=== PATIENT | male | born 1965 | race Caucasian/White ===

== ENCOUNTER 2016-09-11 17:16 | Emergency (ER) | payer BC ==
[~2016-09-11] VITALS: Ht 180.3 cm; Wt 122.9 kg
[~2016-09-11 17:16] MED LIST: ADVAIR 250/501 DISK IH; FLEXERIL10 MG PO; IBUPROFEN800 MG PO; KEFLEX500 MG PO; MOTRIN800 MG PO; NAPROSYN500 MG PO; PRILOSEC OTC20 MG PO; PRILOSEC10 MG PO; PYRIDIUM100 MG PO; ULTRAM50 MG PO; VENTOLIN HFA18 GM IH
[2016-09-11 18:01] LABS: HEMATOCRIT 44.2 % (38.0-50.0); MCH 31.4 PG (29.0-34.0); MCHC 34.8 G/DL (30.0-36.0); MEAN PLAT.VOLUME 11.9 uM^3 (9.0-12.4); PLATELET COUNT 160 K/uL (156-360); RBC DIS.WIDTH-CV 12.9 % (11.8-14.6); RBC DIS.WIDTH-SD 41.8 % (39-53); RED BLOOD COUNT 4.91 M/uL (4.00-5.50); WHITE BLOOD COUNT 7.2 K/uL (4.1-10.2)
[2016-09-11 18:12] LABS: CHLORIDE 101 mEq/L (99-109); POTASSIUM 4.4 mEq/L (3.7-5.4); SODIUM 135 mEq/L (136-147)
[2016-09-11 18:14] LABS: GLUCOSE 132 mg/dL (70-99)
[2016-09-11 18:15] LABS: ANION GAP 10 MEQ/L (2-14)
[2016-09-11 18:18] LABS: GFR ESTIMATE (CALCULATED) > 59 mL/min/; UREA NITROGEN (BUN) 13 mg/dL (9-23)
[2016-09-11] MEDS ORDERED: HYCODAN SYRUP480 ML PO (20:11)
[2016-09-11 20:46] VITALS: BP 124/72
== END 2016-09-11 20:47 | disposition home or self-care (01) ==
LOC: EME 17:16
DX: B34.9 Viral infection, unspecified (principal); E78.5 Hyperlipidemia, unspecified; Z88.7 Allergy status to serum and vaccine
CPT/HCPCS: 71020; 80048; 85027; 99281; 99283